=== PATIENT | male | born 2000 | race African-American/Black ===

== ENCOUNTER → 2021-01-13 | Outpatient (CLI) | payer SELFPAY | LOC: M LABSMTC 10:08 | PROVIDERS: ATTEND Pediatrics | DX: Z11.52 Encounter for screening for COVID-19 (principal) ==

== ENCOUNTER 2022-03-08 12:59 | Emergency (ER) | payer OTHER ==
[~2022-03-08] VITALS: Ht 175.3 cm; Wt 63.5 kg
[2022-03-08] MEDS ORDERED: IBUP-359 PO (13:16)
[2022-03-08] MEDS ORDERED: CLIN150C17 PO (13:28)
[2022-03-08] MEDS ORDERED: KETOROLAC 60MG 2ML VIAL IM ONE (14:05)
[2022-03-08] MEDS ORDERED: NORCO, ANEXSIA 5/325MG TABLET (HYDROcodone/ACETAMINOPHEN) PO ONE (15:05)
[2022-03-08 15:45] VITALS: BP 134/63
== END 2022-03-08 16:10 | disposition home or self-care (01) ==
LOC: M ED 12:59
DX: R55 Syncope and collapse (principal); K08.89 Other specified disorders of teeth and supporting structures
CPT/HCPCS: 93005; 96372; 99284; J1885

== ENCOUNTER → 2023-02-12 | Outpatient (REF) | payer OTHER ==
[~2023-02-12] MED LIST: CLIN150C17 PO; IBUP-359 PO
[2023-02-12 16:27] LABS: GC DNA AMPLIFICATION NEGATIVE (NEGATIVE)
== END ==
LOC: M LAB REF 12:12
PROVIDERS: ATTEND Physician Assistant
DX: N50.819 Testicular pain, unspecified (principal)

== ENCOUNTER → 2023-08-26 | Outpatient (REF) | payer OTHER | LOC: M SFHCPLAZ 11:14 | PROVIDERS: ATTEND Student in an Organized Health Care Education/Training Program | DX: Z53.9 Procedure and treatment not carried out, unspecified reason (principal) ==

== ENCOUNTER 2024-06-07 13:46 | Emergency (ER) | payer OTHER ==
[~2024-06-07] VITALS: Ht 175.3 cm; Wt 69.5 kg
[2024-06-07] MEDS: ACETAMINOPHEN 325 MG TAB PO ONE (15:11)
[2024-06-07] MEDS: BOOSTRIX VACCINE (TETANUS/DIPHTH/ACEL. PERTUSSIS) 0.5ML SYR IM ONE (15:14)
[2024-06-07 16:27] VITALS: BP 119/77; TEMP 97.2; O2SAT 94
== END 2024-06-07 16:29 | disposition home or self-care (01) ==
LOC: M ED 13:46
DX: S00.81XA Abrasion of other part of head, initial encounter (principal); S40.811A Abrasion of right upper arm, initial encounter; S60.212A Contusion of left wrist, initial encounter; S40.021A Contusion of right upper arm, initial encounter; V00.838A Other accident with motorized mobility scooter, initial encounter; Y92.410 Unspecified street and highway as the place of occurrence of the external cause; Y93.51 Activity, roller skating (inline) and skateboarding; Y99.8 Other external cause status